=== PATIENT | male | born 1965 | race African-American/Black ===

== ENCOUNTER 2024-11-03 17:14 | Inpatient (IN) | payer OTHER ==
[2024-11-03 16:05] VITALS: BMI 19.0
[2024-11-03] MEDS ORDERED: BENZOCAINE/MENTHOL (CHLORASEPTIC ) LOZENGE MM PRN (17:29)
[2024-11-03] MEDS ORDERED: LOPERAMIDE HCL 2 MG CAPSULE PO PRN (17:29)
[2024-11-03] MEDS ORDERED: IBUPROFEN 600 MG TABLET (FP) PO PRN (17:29)
[2024-11-03] MEDS ORDERED: IBUPROFEN 400 MG TABLET (FP) PO PRN (17:29)
[2024-11-03] MEDS ORDERED: NALOXONE (NARCAN) HCL 4 MG/0.1 ML SPRAY NS PRN (17:29)
[2024-11-03] MEDS ORDERED: BENZONATATE 200 MG CAPSULE PO PRN (17:29)
[2024-11-03] MEDS ORDERED: MAGNESIUM HYDROX 2400MG/30ML ORAL SUSPENSION 30 ML CUP PO PRN (17:29)
[2024-11-03] MEDS ORDERED: MAG HYDROX/AL HYDROX/SIMETH 30 ML UNIT-DOSE CUP PO PRN (17:29)
[2024-11-03] MEDS ORDERED: POLYETHYLENE GLYCOL (HEALTHYLAX) 3350 17 GM PACKET PO PRN (17:29)
[2024-11-03] MEDS ORDERED: guaiFENesin 600 MG TABLET.ER (FP) PO PRN (17:29)
[2024-11-03] MEDS: THIAMINE 100 MG TABLET PO SCH (22:29)
[2024-11-03] MEDS: MELATONIN 5 MG TABLETS PO SCH (22:29)
[2024-11-04 11:44] LABS: MCHC 34.9 g/dl (32.3-36.5); MEAN CELL VOLUME 84.5 fl (79.0-92.2); MEAN PLT VOLUME 11.2 fl (9.4-12.4); RDW 13.2 % (12.2-16.1)
[2024-11-04 11:54] LABS: CO2 26 mmol/L (21-32); GLUCOSE,RANDOM 92 mg/dL (74-106)
[2024-11-04 11:57] LABS: CREATININE 0.9 mg/dL (0.55-1.3); SGOT/AST 15 U/L (15-37); SGPT/ALT 20 U/L (13-61)
[2024-11-04 11:58] LABS: TOT PROT 5.9 g/dl (6.4-8.2)
[2024-11-04 11:59] LABS: ALK PHOS 52 U/L (45-117)
[2024-11-04 12:17] LABS: SYPHILIS W/ RPR CONF NON-REACTIVE (NONREACTIVE)
[2024-11-04 12:46] LABS: HCV DIAGNOSTIC IN-HOUSE W/RFLX NON-REACTIVE (NONREACTIVE)
[2024-11-04] MEDS ORDERED: TUBERCULIN PPD 5 TU/0.1ML VIAL ID ONE (13:05)
[2024-11-04] MEDS: PRENATAL VITAMINS W/ FOLIC ACID TABLET (FP) PO SCH (13:06)
[2024-11-05 11:34] LABS: EPI CELLS 2 /uL (0-25.1); HYALINE CASTS 0 /uL (0-3.1); URINE APPEARANCE CLEAR; URINE BACTERIA 10 /uL (0-1359); URINE BILIRUBIN NEGATIVE (NEGATIVE); URINE COLOR YELLOW; URINE GLUCOSE (UA) NEGATIVE (NEGATIVE); URINE KETONE NEGATIVE (NEGATIVE); URINE LEUK ESTERASE NEGATIVE (NEGATIVE); URINE NITRITE NEGATIVE (NEGATIVE); URINE PROTEIN NEGATIVE (NEGATIVE); URINE RBC 3 /uL (0-23.9); URINE UROBILINOGEN 0.2 mg/dL (0.2-1.0); URINE WBC 3 /uL (0-25.8)
[2024-11-07] MEDS: hydrOXYzine PAMOATE 25 MG CAPSULE (FP) PO PRN (21:09)
[2024-11-18] MEDS: ACETAMINOPHEN 325 MG TABLET (FP) PO PRN (10:28)
[2024-11-18] MEDS: LIDOCAINE PATCH REMOVAL MC SCH (21:06)
[2024-11-18] MEDS: OMEGA-3 ACID ETHYL ESTERS (FATTY-ACIDS) 1 GM CAPSULE (FP) PO SCH (21:06)
[2024-11-19] MEDS: LIDOCAINE 5% TOPICAL PATCH TP SCH (09:35)
[2024-11-20] MEDS: FERROUS SO4 325 MG TABLET (FP) PO SCH (13:32)
[2024-11-26] MEDS: LIDOCAINE 5% TOPICAL PATCH TP SCH (10:45)
[2024-11-29 06:38] VITALS: RESP 16
[2024-11-29] MEDS: TAMSULOSIN HCL 0.4 MG CAP PO SCH (11:47)
[2024-11-29] MEDS: ARTIFICIAL TEARS OPHTHALMIC DROPS OU PRN (13:14)
[2024-12-01 05:41] VITALS: BP 123/76; PULSE 89; TEMP 97.8
== END 2024-12-01 09:41 | disposition home or self-care (01) | DRG 772 ==
LOC: YASAS 17:14 → Y3NR 19:15 → Y3W 11-04 10:11
PROVIDERS: ADMIT Psychiatry & Neurology Pain Medicine; ATTEND Psychiatry & Neurology Pain Medicine
PROC: HZ42ZZZ Group Counseling for Substance Abuse Treatment, Cognitive-Behavioral (ICD-10-PCS; principal; 2024-11-03)
DX: F14.20 Cocaine dependence, uncomplicated (principal); F12.20 Cannabis dependence, uncomplicated; F17.210 Nicotine dependence, cigarettes, uncomplicated; F41.9 Anxiety disorder, unspecified; M17.11 Unilateral primary osteoarthritis, right knee; N40.0 Benign prostatic hyperplasia without lower urinary tract symptoms; Z59.00 Homelessness unspecified
CPT/HCPCS: 36415; 71046-TC-FY; 80053; 80307; 81003; 85027; 86780; 86803; 93005; 93010